=== PATIENT | male | born 1955 | race Caucasian/White ===

== ENCOUNTER 2019-07-26 09:02 | Day surgery (SDC) | payer MEDICAID ==
[~2019-07-26 09:02] MED LIST: Lactated Ringers 1,000 ML IV SCH; Sodium Chloride 0.9% 10 ML Syringe FLUSH PRN
[2019-07-26] MEDS: Bupivacaine 0.25% 30 ML SDV INJECT ONE (10:47)
[2019-07-26] MEDS: Lidocaine 1% with EPINEPHrine 1:100,000 20 ML MDV INJECT ONE (10:48)
--- NOTE | 2019-07-26 12:14 | PCM.OPNOTE ---
- General Post-Op/Procedure Note Date of Surgery/Procedure: 07/26/19 Operative Procedure(s): Excision basal cell carcinoma of the nose with rapid frozen section and closure by bilobed rotation cutaneous flap Findings: Basal cell carcinoma distal aspect of the nose Surgical margins microscopically clear after excision Pre Op Diagnosis: Basal cell carcinoma of the nose Post-Op Diagnosis: Same Anesthesia Technique: Local Primary Surgeon: Efra Wolf Pathology: Basal Cell Ca nose EBL in mLs: 10 Complications: None Condition: Good
--- NOTE | 2019-07-26 17:58 | OR ---
DATE OF OPERATION: 07/26/2019 SURGEON: Efra Wolf MD PREOPERATIVE DIAGNOSIS: Basal cell carcinoma of the nose. POSTOPERATIVE DIAGNOSIS: Basal cell carcinoma of the nose. OPERATION PERFORMED: Excision of basal cell carcinoma of the nose. INDICATIONS FOR SURGERY: This 64-year-old male has developed a skin lesion on the distal aspect of his nose. Punch biopsy of this confirms the lesion to be a basal cell carcinoma. He comes for excision using Mohs technique for complete removal of this lesion. FINDINGS: On the distal aspect of the patient's nose, just to the left of the midline, there is an irregular lesion which has been previously biopsy proven to be a basal cell carcinoma. The lesion is irregular in shape. It is approximately 1 cm in size. PROCEDURE IN DETAIL: The patient was taken to the operating room. His nose was sterilely prepped with Betadine and draped. The nose was infiltrated with Xylocaine and Marcaine mix to achieve good local anesthesia. A circular incision was then made around the basal cell carcinoma on the patient's nose, leaving a clear 1 mm surgical margin. The excision was full-thickness of the skin and subcutaneous tissue down to the underlying cartilage and the specimen removed was 12 mm in diameter. The specimen was oriented, marked, and submitted to the pathologist who performed rapid frozen section analysis. The report returned showing the lesion to contain residual basal cell carcinoma. However, all of the surgical margins were microscopically clear. The defect was then closed utilizing a bilobed rhomboid cutaneous flap. The proposed locations of the incisions for the flap were marked on the skin, and after it was assured that there was good local anesthesia, the extension of the incision to create the two lobes was carried out. Undermining of the skin circumferentially was performed to allow the cutaneous flap to slide into the defect with minimal tension. Once this had been performed and good hemostasis was achieved, the flap was secured down filling the defect and then closing the other aspects of the flap, all with interrupted 5-0 Prolene. Skin edges were all approximated in this manner. There was minimal tension and minimal deformity of the nose at the completion of this reconstruction. The wound was cleansed with antibiotic ointment and sterile dressing was placed. The patient then left the operating room in satisfactory condition. ESTIMATED BLOOD LOSS: 10 mL. COMPLICATIONS: None. PROGNOSIS: Good. /[id number] MARISSA/MOISES MTDD
== END 2019-07-26 12:20 | disposition home or self-care (01) ==
LOC: FB.SDS 09:02
PROVIDERS: ATTEND Surgery
DX: C44.311 Basal cell carcinoma of skin of nose (principal)
CPT/HCPCS: J3490